=== PATIENT | male | born 1985 | race Caucasian/White ===

== ENCOUNTER → 2018-06-28 | Outpatient (CLI) | payer OTHER ==
--- NOTE | 2018-06-28 16:40 | Diagnostic Imaging Report ---
EXAM: Renal Ultrasound INDICATION: UTI COMPARISON: None TECHNIQUE: Transverse and longitudinal images of the kidneys and bladder were obtained. FINDINGS: Right Kidney: Length: Measures 8.5 x 4.1 x 4.9 cm Appearance: Normal echogenicity. Collecting system: No hydronephrosis Stones: None Cyst/Mass: There is a 2.2 x 1.1 x 1.8 cm anechoic right lower pole medullary cyst, which may represent parapelvic cyst. Left Kidney: Length: Measures 10.0 x 4.9 x 5.7 cm Appearance: Normal echogenicity. Collecting system: No hydronephrosis Stones: None Cyst/Mass: None Bladder: Unremarkable in appearance. Right ureteral jet is visualized. Left ureteral jet is not visualized. IMPRESSION: No evidence of hydronephrosis. Simple appearing right lower pole medullary renal cyst, which may represent a parapelvic cyst. Signed by: Dr. Silas Zaman MD on 06/28/2018 4:37 PM
--- NOTE | 2018-06-28 17:08 | Diagnostic Imaging Report ---
Exam: KUB -2 views Comparison: Bilateral renal ultrasound 06/28/18. Findings: There is a nonobstructive bowel gas pattern. There is no free intraperitoneal air. Bowel gas partially obscures visualization of the kidneys. A 2 mm calcification projects over the right mid kidney. No calcifications project over the left kidney or the expected location of the ureters. The bony structures are unremarkable. Impression: Possible 2 mm right mid pole renal stone. Signed by: Dr. Silas Zaman MD on 06/28/2018 5:04 PM
== END ==
LOC: US 15:00
PROVIDERS: ATTEND Urology
DX: N39.0 Urinary tract infection, site not specified (principal)
CPT/HCPCS: 74018; 76770

== ENCOUNTER → 2020-08-31 | Outpatient (CLI) | payer OTHER | LOC: US 12:23 | PROVIDERS: ATTEND Urology | DX: N28.1 Cyst of kidney, acquired (principal) | CPT/HCPCS: 74018; 76770 ==

== ENCOUNTER 2021-05-05 06:37 | Emergency (ER) | payer OTHER ==
[~2021-05-05] VITALS: Ht 167.6 cm; Wt 86.2 kg
[2021-05-05] MEDS ORDERED: DEXAMETHASONE SOD PHOS 10 MG/1 ML VIAL IV ONE (07:30)
[2021-05-05] MEDS ORDERED: SODIUM CHLORIDE 0.9% 1000ML 1,000 ML IV SCH (07:30)
[2021-05-05] MEDS ORDERED: METOCLOPRAMIDE HCL 10 MG/2ML VIAL IV ONE (07:30)
[2021-05-05] MEDS ORDERED: DIPHENHYDRAMINE HCL INJ 50 MG/ML VIAL IV ONE (07:30)
[2021-05-05] MEDS ORDERED: DEXAMETHASONE SOD PHOS INJ 4 MG/ML SDV ONE (07:49)
[2021-05-05] MEDS ORDERED: ONDANSETRON ODT4 MG PO (08:53)
== END 2021-05-05 09:07 | disposition home or self-care (01) ==
LOC: FSED 07:21
DX: G43.801 Other migraine, not intractable, with status migrainosus (principal); E03.9 Hypothyroidism, unspecified; Z87.19 Personal history of other diseases of the digestive system
CPT/HCPCS: 99283; J1100 ×2; J1200; J2765; J7030